=== PATIENT | male | born 1955 | race Caucasian/White ===

== ENCOUNTER 2018-06-08 11:57 | Emergency (ER) | END 2018-06-08 13:53 | disposition home or self-care (01) | DX: F41.9 Anxiety disorder, unspecified (principal); F13.10 Sedative, hypnotic or anxiolytic abuse, uncomplicated; I10 Essential (primary) hypertension; F17.290 Nicotine dependence, other tobacco product, uncomplicated; Z95.1 Presence of aortocoronary bypass graft; Z79.82 Long term (current) use of aspirin | CPT/HCPCS: 36415; 71045; 80048; 80076; 84484; 85025; 93005; 96374; 96376; 99284; 99406; J2060 ×2 ==